=== PATIENT | female | born 1955 | race Caucasian/White ===

== ENCOUNTER 2020-08-23 16:16 | Emergency (ER) | payer OTHER ==
[~2020-08-23] VITALS: Ht 162.6 cm; Wt 117.9 kg
[~2020-08-23 16:16] MED LIST: ACETAMINOPHEN325 M1 PO; ALENDRONATE SOD70 MG PO; ALLEGRA60 MG PO; ANASTROZOLE; ANTARA130 MG PO; ANTARA90 MG PO; ANTIBIOTIC PO; BAYER W-CALCIU1 EACH PO; BENZONATATE200 MG PO; CALCIUM 500 +1 EAC5 PO; CALCIUM 500+D1 EAC2 PO; CALCIUM PO; FEMARA2.5 MG PO; FOSAMAX 70 MG T70 M1 PO; GABAPENTIN 100100 MG PO; GUAIFENESIN-CODE5 ML PO; HYDROCODON-ACE1 EAC7 PO; INDOMETHACIN 5050 M1 PO; LEVAQUIN 500 M500 M2 PO; LEVOXYL88 MCG PO; MAALOX SUSPENS148 ML PO; OMEPRAZOLE40 MG PO; TRICOR145 MG PO; VITAMIN D-40400 UNIT PO; VITAMIN D1000 UNI1 PO
[2020-08-23] MEDS ORDERED: GEMFIBROZIL 60600 M1 PO (16:51)
[2020-08-23] MEDS ORDERED: PRED FORTE 1% EY5 M1 LT. EYE (16:51)
[2020-08-23] MEDS ORDERED: DULOXETINE HCL30 MG PO (16:53)
[2020-08-23] MEDS ORDERED: IBUPROFEN 600600 M1 PO (19:09)
[2020-08-23 19:20] VITALS: BP 124/74
== END 2020-08-23 19:20 | disposition home or self-care (01) ==
LOC: ER 16:16
DX: M25.562 Pain in left knee (principal); Z90.710 Acquired absence of both cervix and uterus; Z79.899 Other long term (current) drug therapy; Z88.0 Allergy status to penicillin; Z88.2 Allergy status to sulfonamides; Z91.048 Other nonmedicinal substance allergy status